=== PATIENT | male | born 1965 | race Caucasian/White ===

== ENCOUNTER 2024-10-06 11:30 | Inpatient (IN) | payer BC, SELFPAY ==
[2024-10-06] VITALS (39 sets, daily range): BP systolic 94–131; BP diastolic 65–88; PULSE 85–120; RESP 12–22; TEMP 36.4–37.4; O2SAT 90–97; BMI 32.5
--- NOTE | 2024-10-06 11:54 | ED.GENADULT ---
HPI - General Adult General Chief complaint: Abdominal Pain Stated complaint: abdominal pain Time Seen by Provider: 10/06/24 11:54 History of Present Illness HPI narrative: RLQ abdominal pain since this morning. My appendix is acting up again . Notes workup two months ago , but wasn't bad enough to remove. From [place], workup in [place], [place] 59-year-old man presenting to the emergency department with complaint of all qualities of pain in the right low abdomen. Beginning around 3 this morning about 9 hours ago had fairly rapid onset and of pain in the mid low abdomen. It is only worsened. Last ate last night and had a little ice water before arriving to the emergency department today. Is not experiencing any nausea. Has been passing gas at least earlier this morning. Believes that it is his appendix acting up again. Sounds like that was the assumption made on an urgent care visit 2 months ago. He says he was treated with anti-inflammatories. Has not had trouble until this morning as noted. No unusual stooling; no diarrhea or constipation. No hematochezia. No dysuria noted. No history of abdominal surgeries. No surgeries other than a cyst removal from behind his left ear. No anticoagulant. Related Data Home Medications ?Medication ?Instructions ?Recorded ?Confirmed No Known Home Medications 10/06/24 10/06/24 Allergies Allergy/AdvReac Type Severity Reaction Status Date / Time No Known Drug Allergies Allergy Verified 10/06/24 11:36 Review of Systems Status of ROS: Reports: 6 or more systems reviewed and unremarkable except as noted in History and below [facility] Social History Smoking Status: Never smoker Second hand tobacco smoke exposure: No How often do you have a drink containing alcohol: 2-4 times a month AUDIT-C Alcohol total score: 2 Non-prescribed substance use: denies use Exam Narrative: Exam Narrative: Clearly extremely uncomfortable. Eyes are closed but alerts to converse. Cranial nerves 2-12 intact. Breathing easily. Pulses tachycardic in a regular rhythm. Abdomen is soft. Diminished bowel sounds. Guards and tense on initial exam in the right lower abdomen. Is well-perfused peripherally. No edema. Const: Vital Signs, click to edit/add: Vital Signs - 24 hr 10/06/24 11:39 10/06/24 12:19 10/06/24 12:30 Temperature 99.3 F Pulse Rate 106 H 110 H Pulse Rate [Pulse Oximeter] 111 H Respiratory Rate 22 Blood Pressure Blood Pressure [Ri ght Upper Arm] 124/65 Pulse Oximetry 97 95 95 Oxygen Delivery Me thod Room Air 10/06/24 12:32 10/06/24 12:45 10/06/24 13:00 Temperature Pulse Rate 109 H 109 H 110 H Pulse Rate [Pulse Oximeter] Respiratory Rate Blood Pressure 117/72 Blood Pressure [Ri ght Upper Arm] Pulse Oximetry 92 93 91 Oxygen Delivery Me thod 10/06/24 13:01 10/06/24 13:15 10/06/24 13:33 Temperature Pulse Rate 110 H 109 H Pulse Rate [Pulse Oximeter] Respiratory Rate Blood Pressure 105/70 105/79 Blood Pressure [Ri ght Upper Arm] Pulse Oximetry 92 92 Oxygen Delivery Me thod 10/06/24 13:34 10/06/24 13:45 10/06/24 14:01 Temperature Pulse Rate 108 H 110 H Pulse Rate [Pulse Oximeter] Respiratory Rate Blood Pressure 100/74 Blood Pressure [Ri ght Upper Arm] Pulse Oximetry 95 92 Oxygen Delivery Me thod 10/06/24 14:26 10/06/24 14:27 10/06/24 14:30 Temperature Pulse Rate 109 H 120 H 110 H Pulse Rate [Pulse Oximeter] Respiratory Rate Blood Pressure 94/70 Blood Pressure [Ri ght Upper Arm] Pulse Oximetry 95 94 91 Oxygen Delivery Me thod 10/06/24 14:31 10/06/24 14:45 Temperature Pulse Rate 106 H 108 H Pulse Rate [Pulse Oximeter] Respiratory Rate Blood Pressure 98/73 Blood Pressure [Ri ght Upper Arm] Pulse Oximetry 92 93 Oxygen Delivery Me thod Documenting provider has reviewed patient's vital signs: yes Course Vital Signs Vital signs: Initial Vital Signs Temperature 99.3 F 10/06/24 11:39 Temperature Source Temporal Artery Scan 10/06/24 11:39 Pulse Rate 111 H 10/06/24 11:39 Respiratory Rate 22 10/06/24 11:39 Blood Pressure 124/65 10/06/24 11:39 Blood Pressure Mean 84 10/06/24 11:39 Blood Pressure Position Sitting 10/06/24 11:39 Pulse Oximetry 97 10/06/24 11:39 Oxygen Delivery Method Room Air 10/06/24 11:39 Vital Signs Temperature 99.3 F 10/06/24 11:39 Pulse Rate 111 H 10/06/24 11:39 Respiratory Rate 22 10/06/24 11:39 Blood Pressure 124/65 10/06/24 11:39 Pulse Oximetry 97 10/06/24 11:39 Oxygen Delivery Method Room Air 10/06/24 11:39 Temperature 99.3 F 10/06/24 11:39 Pulse Rate 108 H 10/06/24 14:45 Respiratory Rate 22 10/06/24 11:39 Blood Pressure 98/73 10/06/24 14:31 Pulse Oximetry 93 10/06/24 14:45 Oxygen Delivery Method Room Air 10/06/24 11:39 Medications Administered Medications: Discontinued Medications Generic Name Dose Route Start Last Admin Trade Name Freq PRN Reason Stop Dose Admin Sodium Chloride 1,000 mls @ 1,000 mls/hr 10/06/24 11:57 10/06/24 13:10 0.9 % Sodium Chloride 1000 Ml IV 10/06/24 12:56 Infused .Q1H ONE Infusion Morphine Sulfate 4 mg 10/06/24 11:57 10/06/24 12:11 Morphine 4 Mg/Ml Inj IVP 10/06/24 11:58 4 mg ONCE ONE Administration Morphine Sulfate 4 mg 10/06/24 14:22 10/06/24 14:26 Morphine 4 Mg/Ml Inj IVP 10/06/24 14:23 4 mg ONCE ONE Administration Medical Decision Making MDM Narrative Medical decision making narrative: Given abdominal exam here today think he will need some imaging particularly as no imaging was done on initial presentation 2 months ago. I also would have concerns of appendicitis here; possibly abscess. Will check for urinary tract infection. Does not seem to have pain in the area that I would associate with biliary disease. IV fluids and given initial dosing of morphine for pain. CT imaging with IV contrast by my independent read does show some fat stranding in the right lower abdomen. There is dilated structure there that I would suspect to be the appendix. Labs returned with normal white count. Mildly elevated CRP Radiology over-read below RIGHT LOWER ABDOMINAL PAIN. ?APPY Technique: CT abdomen/pelvis with IV contrast utilizing 115 mL Isovue 370 Comparison: None Findings: Lower thorax: Minimal dependent and basilar atelectasis. Abdomen/pelvis: The liver, gallbladder and biliary system, spleen, pancreas, adrenal glands, kidneys, ureters, bladder, seminal vesicles, prostate, and imaged external genitalia are unremarkable. Benign simple left renal cyst measuring 1.7 centimeters in greatest dimension. Small hiatal hernia. There is no evidence of bowel obstruction. The appendix is dilated to approximately 1.3 centimeters in diameter with [id number] periappendiceal fat stranding. No free air, free fluid, or abscess. No pathologically enlarged lymph nodes throughout the abdomen or pelvis. No abdominal aortic aneurysm. Mild calcific atherosclerosis of the aortoiliac system. Soft tissue/musculoskeletal: Diastasis recti with tiny fat containing umbilical hernia. No acute fracture or malalignment. Multilevel degenerative changes throughout the spine. No suspicious osseous lesions. Likely small, benign T10 vertebral body hemangioma. Impression: Acute, uncomplicated appendicitis; recommend consultation with surgery. Please note that all CT scans at this facility use dose modulation, iterative reconstruction, and/or weight-based dosing when appropriate to reduce radiation dose to as low as reasonably achievable. Dictated by Kike Jaffe MD @ 10/06/2024 2:19:03 PM Repeat dosing of morphine given. Had managed to fall sleep and woke in marked pain. Did contact our general surgeon on-call. Anticipating going to the OR yet this afternoon. Giving preop Zosyn. Lab Data Lab results reviewed: Yes I reviewed the patient's lab results Labs: Lab Results 10/06/24 10/06/24 Range/Units 11:50 12:58 WBC 6.93 (4.50-11.00) K/uL RBC 5.28 (4.30-5.90) m/uL Hgb 16.8 (13.5-17.5) gm/dL Hct 49.5 (37.0-53.0) % MCV 94 (80-100) fL MCH 32 (26-34) pg MCHC 34 (32-36) gm/dL RDW Coeff of Chanel 12.6 (11.5-15.5) % Plt Count 227 (140-440) K/uL Neut % (Auto) 94.8 H (42.0-72.0) % Lymph % (Auto) 4.2 L (20-44) % Davison % (Auto) 0.6 (0.0-11.0) % Eos % (Auto) 0.0 (0.0-7.0) % Baso % (Auto) 0.3 (0.0-3.0) % Neut # (Auto) 6.60 (1.7-7.0) K/uL Lymph # (Auto) 0.30 L (0.90-2.90) K/uL Davison # (Auto) 0.00 (0.00-0.90) K/UL Eos # (Auto) 0.00 (0.00-0.50) K/uL Baso # (Auto) 0.02 (0.00-0.30) K/uL Abs Immat Gran (auto) 0.01 (0.00-0.30) K/uL Imm/Tot Granulo (auto) 0.1 % Sodium 137 (135-149) mmol/L Potassium 4.3 (3.6-5.1) mmol/L Chloride 101 (96-114) mmol/L Carbon Dioxide 27 (20-32) mmol/L Anion Gap 9 (7-15) mEq/L BUN 15 (7-30) mg/dL Creatinine 1.1 (0.5-1.5) mg/dL Estimated Creat Clear 76.06 Estimated GFR 77 ml/min Glucose 122 H (60-115) mg/dL Calcium 9.2 (8.4-10.6) mg/dL C-Reactive Protein 1.6 H (0.5-1.0) mg/dL Lab Acknowledgement Test Added Discharge Plan Discharge Clinical Impression: Appendicitis, Abdominal pain Patient Disposition: XFER to OR Condition: Stable Follow Up/Referrals: Provider,Not a Local [Primary Care Provider, Family Practice]
--- NOTE | 2024-10-06 12:02 | CRLHL7_ITS ---
For Patients: As a result of the Century Cures Act, medical imaging exams and procedure reports are released immediately into your electronic medical record. You may view this report before your referring provider. If you have questions, please contact your health care provider. Indication: RIGHT LOWER ABDOMINAL PAIN. ?APPY Technique: CT abdomen/pelvis with IV contrast utilizing 115 mL Isovue 370 Comparison: None Findings: Lower thorax: Minimal dependent and basilar atelectasis. Abdomen/pelvis: The liver, gallbladder and biliary system, spleen, pancreas, adrenal glands, kidneys, ureters, bladder, seminal vesicles, prostate, and imaged external genitalia are unremarkable. Benign simple left renal cyst measuring 1.7 centimeters in greatest dimension. Small hiatal hernia. There is no evidence of bowel obstruction. The appendix is dilated to approximately 1.3 centimeters in diameter with [id number] periappendiceal fat stranding. No free air, free fluid, or abscess. No pathologically enlarged lymph nodes throughout the abdomen or pelvis. No abdominal aortic aneurysm. Mild calcific atherosclerosis of the aortoiliac system. Soft tissue/musculoskeletal: Diastasis recti with tiny fat containing umbilical hernia. No acute fracture or malalignment. Multilevel degenerative changes throughout the spine. No suspicious osseous lesions. Likely small, benign T10 vertebral body hemangioma. Impression: Acute, uncomplicated appendicitis; recommend consultation with surgery. Please note that all CT scans at this facility use dose modulation, iterative reconstruction, and/or weight-based dosing when appropriate to reduce radiation dose to as low as reasonably achievable. Dictated by Kike Jaffe MD @ 10/06/2024 2:19:03 PM (Electronically Signed)
[2024-10-06] MEDS: 0.9 % SODIUM CHLORIDE 1000 ml 1,000 ML IV (12:05)
[2024-10-06] MEDS: MORPHINE 4 MG/ML INJ IVP ×2 (12:11→14:26)
[2024-10-06 12:16] LABS: Basophils Absolute Auto 0.02 K/uL (0.00-0.30); Basophils Percent Auto 0.3 % (0.0-3.0); Hematocrit 49.5 % (37.0-53.0); Hemoglobin* 16.8 gm/dL (13.5-17.5); Immature Granulocytes Abs Auto 0.01 K/uL (0.00-0.30); Immature Granulocytes Pct Auto 0.1 %; Lymphocytes Percent Auto 4.2 % (20-44); Mean Corpuscular HGB Conc 34 gm/dL (32-36); Mean Corpuscular Hemoglobin 32 pg (26-34); Mean Corpuscular Volume 94 fL (80-100); Monocytes Percent Auto 0.6 % (0.0-11.0); Neutrophils Percent Auto 94.8 % (42.0-72.0); Platelet Count* 227 K/uL (140-440); RDW Coefficient of Variation % 12.6 % (11.5-15.5); Red Blood Count 5.28 m/uL (4.30-5.90); White Blood Count* 6.93 K/uL (4.50-11.00)
[2024-10-06 12:19] LABS: Slide Review Reflex No
[2024-10-06 12:39] LABS: Chloride* 101 mmol/L (96-114); Potassium* 4.3 mmol/L (3.6-5.1); Sodium* 137 mmol/L (135-149)
[2024-10-06 12:42] LABS: Blood Urea Nitrogen* 15 mg/dL (7-30); Creatinine* 1.1 mg/dL (0.5-1.5); Est. Creatinine Clearance* 76.06; Estimated Glomerular Filt Rate 77 ml/min
[2024-10-06 12:43] LABS: Anion Gap 9 mEq/L (7-15); Calcium* 9.2 mg/dL (8.4-10.6); Carbon Dioxide* 27 mmol/L (20-32); Glucose* 122 mg/dL (60-115)
[2024-10-06 12:46] LABS: C Reactive Protein* 1.6 mg/dL (0.5-1.0)
[2024-10-06] MEDS: PIPERACILLIN/TAZOBACTAM 4.5 GM in 0.9 % SODIUM CHLORIDE Mini-bag 100 ML IVPB (15:28)
[2024-10-06] MEDS: HYDROmorphone 0.5 mg/0.5 ml inj IVP (15:31)
[2024-10-06] MEDS: LACTATED RINGERS 1000 ML 1,000 ML 100 ML IV ×2 (15:35→19:02)
[2024-10-06 15:39] LABS: Albumin* 4.4 g/dL (3.3-5.0)
[2024-10-06 15:41] LABS: Bilirubin Direct* 0.5 mg/dL (0.0-0.5); Bilirubin Total* 1.4 mg/dL (0.1-1.5)
[2024-10-06 15:42] LABS: Alanine Aminotransferase* 42 U/L (4-50); Alkaline Phosphatase* 88 U/L (40-150); Aspartate Amino Transferase* 46 U/L (12-35); Total Protein* 7.4 g/dL (6.0-8.3)
--- NOTE | 2024-10-06 15:47 | P.GSHP_ITS ---
History of Present Illness History of Present Illness Date Seen: 10/06/24 Chief complaint: abdominal pain Narrative: Bc Hilliard is a 59 year old male who presents for severe right lower quadrant abdominal pain. The pain started around 3:00 a.m. today. It has been getting worse in intensity which brought him into the emergency department. He did have some nausea and vomiting this morning. He has felt fevers with rigors. He thinks he had a similar episode in June, although not this severe. He has never had abdominal surgery before. Patient is visiting from [place]. He was planning on going back home tomorrow Review of Systems Status of ROS: Reports: 10 or more systems reviewed and unremarkable except as noted in History and below [facility] Social History Smoking Status: Never smoker Second hand tobacco smoke exposure: No How often do you have a drink containing alcohol: 2-4 times a month AUDIT-C Alcohol total score: 2 Non-prescribed substance use: denies use Meds Home Medications and Allergies Home Medications ?Medication ?Instructions ?Recorded ?Confirmed ?Type No Known Home Medications 10/06/2409/14 History Allergies Allergy/AdvReac Type Severity Reaction Status Date / Time No Known Drug Allergies Allergy Verified 10/06/24 11:36 Exam Narrative: Exam Narrative: General: Alert and oriented, no acute distress Respiratory: Equal breath rise bilaterally, maintained on room CV: Well perfused Abdomen: Soft, tender to palpation to right lower quadrant with guarding and rebound Const: Vital Signs, click to edit/add: Vital Signs - 24 hr 10/06/24 11:39 10/06/24 12:19 10/06/24 12:30 Temperature 99.3 F Pulse Rate 106 H 110 H Pulse Rate [Pulse Oximeter] 111 H Respiratory Rate 22 Blood Pressure Blood Pressure [Ri ght Upper Arm] 124/65 Pulse Oximetry 97 95 95 Oxygen Delivery Me thod Room Air 10/06/24 12:32 10/06/24 12:45 10/06/24 13:00 Temperature Pulse Rate 109 H 109 H 110 H Pulse Rate [Pulse Oximeter] Respiratory Rate Blood Pressure 117/72 Blood Pressure [Ri ght Upper Arm] Pulse Oximetry 92 93 91 Oxygen Delivery Me thod 10/06/24 13:01 10/06/24 13:15 10/06/24 13:33 Temperature Pulse Rate 110 H 109 H Pulse Rate [Pulse Oximeter] Respiratory Rate Blood Pressure 105/70 105/79 Blood Pressure [Ri ght Upper Arm] Pulse Oximetry 92 92 Oxygen Delivery Me thod 10/06/24 13:34 10/06/24 13:45 10/06/24 14:01 Temperature Pulse Rate 108 H 110 H Pulse Rate [Pulse Oximeter] Respiratory Rate Blood Pressure 100/74 Blood Pressure [Ri ght Upper Arm] Pulse Oximetry 95 92 Oxygen Delivery Me thod 10/06/24 14:26 10/06/24 14:27 10/06/24 14:30 Temperature Pulse Rate 109 H 120 H 110 H Pulse Rate [Pulse Oximeter] Respiratory Rate Blood Pressure 94/70 Blood Pressure [Ri ght Upper Arm] Pulse Oximetry 95 94 91 Oxygen Delivery Me thod 10/06/24 14:31 10/06/24 14:45 Temperature Pulse Rate 106 H 108 H Pulse Rate [Pulse Oximeter] Respiratory Rate Blood Pressure 98/73 Blood Pressure [Ri ght Upper Arm] Pulse Oximetry 92 93 Oxygen Delivery Me thod Results Results Labs: No leukocytosis Abdomen CT scan report/results: report reviewed and image reviewed Progress Note:A&P Assessment and plan (1) Appendicitis: Status: Acute Assessment and Plan: Patient is a 59-year-old male who presents with clinical symptoms concerning for an early appendicitis. Labs were obtained with no leukocytosis, but the presence of a left shift. CRP is elevated at 1.6. A CT scan was obtained which shows dilation of the appendix, small amount of surrounding fluid and fat stranding consistent with appendicitis. I discussed the treatment options with the patient including non-surgical and surgical options. I recommended laparoscopic appendectomy. The risks of surgery were reviewed with the patient including the risks of bleeding, post-operative wound or intra-abdominal infection, injury to abdominal structures and possible conversion to an open operation. We also discussed anesthetic complications including TX, stroke, respiratory failure and blood clots. The patient voiced an understanding of our conversation, had the opportunity to ask questions, agreed to accept the risks of surgery and asked that we proceed with surgery. Plan OR for laparoscopic appendectomy
[2024-10-06] MEDS: BUPIVACAINE 0.25% 30 ML INJECTION (17:04)
--- NOTE | 2024-10-06 17:08 | PM.GSPRC ---
Operative Note Date of procedure: 10/06/24 Pre-op diagnosis: Acute appendicitis Post-op diagnosis: Same, perforated Type of Procedure: Laparoscopic appendectomy Indications: Patient is a 59-year-old male who presented to the emergency department with clinical workup and symptoms consistent with acute appendicitis. A CT scan confirmed the diagnosis. Recommendations were to proceed with surgery. Risks and benefits of operative intervention were discussed at length with the patient. Risks included but was not limited to: Bleeding, infection, risk of damage to surrounding structures, possible need for additional procedures, possible need to convert to an open operation and postoperative complications such as pneumonia, pulmonary emboli or [place]. All questions and concerns were addressed with the patient agreeing to proceed. Procedure Description: After discussing the risks and benefits of the procedure, the patient signed informed consent.? The operative site was marked and the patient was brought to the operating room and placed on the operating table in supine position.? Care was taken to pad the patient's pressure points.?? The patient was then intubated by anesthesia.?? The operative site was then prepped and draped in the usual sterile fashion.? A time-out was then performed. Entrance to the abdomen was obtained via a 5 mm optical trocar in the left upper quadrant. The abdomen was insufflated and briefly surveyed for any signs of injury. There were none. A 12 mm port was placed at the umbilicus as well as a 5 mm port in the left lower quadrant under direct vision. The patient was then placed in Trendelenburg position with the right side up. Fibrinous exudate and evidence of purulence in the right lower quadrant was identified. The small bowel was inflamed and gently moved out of the way. The cecum was identified, as well as the terminal ileum. The base of the appendix was seen the body of the appendix densely adherent to the lateral and posterior aspect of the cecum. On the body of the appendix was an area of necrosis with a small perforation identified. Omentum and epiploic fat was adherent within the right lower quadrant and inflamed. The body of the appendix was dissected away from the lateral abdominal wall and surrounding inflammatory attachments bluntly and with cautery. The base of the appendix was identified and a mesenteric window was created between the base of the appendix and the mesoappendix. A 30 mm Endo-EFRAÍN purple load stapler was then used to transect the appendix at its base. This staple line was inspected and appeared intact with adequate hemostasis. A 45 mm vascular load stapler was then used to take the mesoappendix. An additional 30 mm staple load was used to complete the transection. The staple lines were inspected for bleeding. There was none. The appendix was then removed from the abdomen using an Endo-Catch bag. The specimen was sent to pathology. Local irrigation was used in the right lower quadrant. All fluid within the pelvis was suctioned. The ports were removed under direct visualization. The 12 mm port site fascia was closed with 0 Vicryl. The skin was then closed with absorbable subcuticular suture. Sterile dressings were then applied. Instrument sponge and needle counts were correct at the end of the case. The patient was then woken and transported to the PACU in stable condition. Findings: Perforated appendicitis [facility] Surgeon: Lea Santiago MD Estimated blood loss (mL): 5 Specimen: Appendix Condition: stable Disposition: PACU
--- NOTE | 2024-10-06 17:18 | P.ANES_ITS ---
Anesthesia Charges Start Date/Time Anesthesia Start Date: 10/06/24 Anesthesia Start Time: 16:00 Stop Date/Time Anesthesia Stop Date: 10/06/24 Anesthesia Stop Time: 17:18 Summary Emergency: [employer] CONSULTANT Coding CPT Codes CPT Codes: ANESTH SURG LOWER ABDOMEN - 28260 ([id number]) P2 - PATIENT W/MILD SYST DISEASE, QZ - [employer] CONSULTANT SVC W/O KNOCK UP ASSEMBLER BY Additional Codes: Summary - Emergency: [employer] CONSULTANT ([id number])
--- NOTE | 2024-10-06 17:18 | W.ANESCHARGE ---
Anesthesia Charges Start Date/Time Anesthesia Start Date: 10/06/24 Anesthesia Start Time: 16:00 Stop Date/Time Anesthesia Stop Date: 10/06/24 Anesthesia Stop Time: 17:18 Summary Emergency: MAINTENA[employer]CE [employer]OP MANAGER Coding CPT Codes CPT Codes: ANESTH SURG LOWER ABDOMEN - 02120 ([id number]) P2 - PATIENT W/MILD SYST DISEASE, QZ - MAINTENANCE SHOP MANAGER SVC W/O TSA SCREENER BY Additional Codes: Summary - Emergency: MAINTENANCE SHOP MANAGER ([id number])
[2024-10-06] MEDS: PIPERACILLIN/TAZOBACTAM 3.375 GM in 0.9 % SODIUM CHLORIDE Mini-bag 100 ML IVPB (21:37)
[2024-10-06] MEDS: 0.9 % SODIUM CHLORIDE 250 ml IV (21:46)
[2024-10-07] VITALS (14 sets, daily range): BP systolic 108–129; BP diastolic 69–84; PULSE 86–105; RESP 14–16; TEMP 36.5–37.8; O2SAT 90–97
[2024-10-07] MEDS: PIPERACILLIN/TAZOBACTAM 3.375 GM in 0.9 % SODIUM CHLORIDE Mini-bag 100 ML IVPB ×4 (02:32→21:08)
--- NOTE | 2024-10-07 06:40 | PC.NURSE ---
Shift note: Patient is doing well ambulating with SBA. Ambulated 1x in the hallway. Denied dizziness, SOB, N/V. Pain has been minimal, rated at 1 or 2. No PRN pain medication requested. A/O, pleasant, cooperate with treatment and care. vitally stable. LAP sites appeared clean and dry. Patient adequate sleep. SCD applied, IS used Q1h by patient. Ice pack applied to the abdomen. Clear liquid diet. Hypoactive bowel sound in all quadrants. Patient reported passing gas this morning.
[2024-10-07 07:02] LABS: Basophils Absolute Auto 0.01 K/uL (0.00-0.30); Basophils Percent Auto 0.1 % (0.0-3.0); Hematocrit 43.1 % (37.0-53.0); Hemoglobin* 14.3 gm/dL (13.5-17.5); Immature Granulocytes Abs Auto 0.02 K/uL (0.00-0.30); Immature Granulocytes Pct Auto 0.2 %; Lymphocytes Percent Auto 4.4 % (20-44); Mean Corpuscular HGB Conc 33 gm/dL (32-36); Mean Corpuscular Hemoglobin 32 pg (26-34); Mean Corpuscular Volume 96 fL (80-100); Monocytes Percent Auto 8.2 % (0.0-11.0); Neutrophils Percent Auto 87.1 % (42.0-72.0); Platelet Count* 164 K/uL (140-440); RDW Coefficient of Variation % 12.8 % (11.5-15.5); Red Blood Count 4.49 m/uL (4.30-5.90); White Blood Count* 10.08 K/uL (4.50-11.00)
[2024-10-07 07:11] LABS: Slide Review Reflex No
[2024-10-07] MEDS: LACTATED RINGERS 1000 ML 1,000 ML 100 ML IV (07:25)
[2024-10-07 07:28] LABS: Chloride* 104 mmol/L (96-114)
[2024-10-07 07:29] LABS: Potassium* 4.2 mmol/L (3.6-5.1); Sodium* 136 mmol/L (135-149)
[2024-10-07 07:32] LABS: Anion Gap 6 mEq/L (7-15); Blood Urea Nitrogen* 11 mg/dL (7-30); Calcium* 8.2 mg/dL (8.4-10.6); Carbon Dioxide* 26 mmol/L (20-32); Est. Creatinine Clearance* 83.67; Estimated Glomerular Filt Rate 86 ml/min; Glucose* 135 mg/dL (60-115)
--- NOTE | 2024-10-07 10:22 | P.GSPN_ITS ---
Subjective Subjective Date Seen: 10/07/24 Interval history: Patient is doing well this morning. His abdomen ?feels tight?, but the pain has significantly improved compared to when he came in with. He has been passing gas. He had some exam this morning and tolerated that well. No nausea or vomiting. No fevers overnight. Has not yet gotten up and walking the halls. Exam Narrative: Exam Narrative: Abdomen: Soft, some mild distention, appropriately tender over incision sites. Some tenderness in the right lower quadrant with deep palpation, no guarding or rebound. Const: Vital Signs, click to edit/add: Vital Signs - 24 hr 10/06/24 11:39 10/06/24 12:19 10/06/24 12:30 Temperature 99.3 F Pulse Rate 106 H 110 H Pulse Rate [Pulse Oximeter] 111 H Pulse Rate [Right Pulse Oximeter] Respiratory Rate 22 Blood Pressure Blood Pressure [Ri ght Arm] Blood Pressure [Ri ght Upper Arm] 124/65 Pulse Oximetry 97 95 95 Oxygen Delivery Me thod Room Air Oxygen Flow Rate 10/06/24 12:32 10/06/24 12:45 10/06/24 13:00 Temperature Pulse Rate 109 H 109 H 110 H Pulse Rate [Pulse Oximeter] Pulse Rate [Right Pulse Oximeter] Respiratory Rate Blood Pressure 117/72 Blood Pressure [Ri ght Arm] Blood Pressure [Ri ght Upper Arm] Pulse Oximetry 92 93 91 Oxygen Delivery Me thod Oxygen Flow Rate 10/06/24 13:01 10/06/24 13:15 10/06/24 13:33 Temperature Pulse Rate 110 H 109 H Pulse Rate [Pulse Oximeter] Pulse Rate [Right Pulse Oximeter] Respiratory Rate Blood Pressure 105/70 105/79 Blood Pressure [Ri ght Arm] Blood Pressure [Ri ght Upper Arm] Pulse Oximetry 92 92 Oxygen Delivery Me thod Oxygen Flow Rate 10/06/24 13:34 10/06/24 13:45 10/06/24 14:01 Temperature Pulse Rate 108 H 110 H Pulse Rate [Pulse Oximeter] Pulse Rate [Right Pulse Oximeter] Respiratory Rate Blood Pressure 100/74 Blood Pressure [Ri ght Arm] Blood Pressure [Ri ght Upper Arm] Pulse Oximetry 95 92 Oxygen Delivery Me thod Oxygen Flow Rate 10/06/24 14:26 10/06/24 14:27 10/06/24 14:30 Temperature Pulse Rate 109 H 120 H 110 H Pulse Rate [Pulse Oximeter] Pulse Rate [Right Pulse Oximeter] Respiratory Rate Blood Pressure 94/70 Blood Pressure [Ri ght Arm] Blood Pressure [Ri ght Upper Arm] Pulse Oximetry 95 94 91 Oxygen Delivery Me thod Oxygen Flow Rate 10/06/24 14:31 10/06/24 14:45 10/06/24 15:00 Temperature Pulse Rate 106 H 108 H 105 H Pulse Rate [Pulse Oximeter] Pulse Rate [Right Pulse Oximeter] Respiratory Rate Blood Pressure 98/73 Blood Pressure [Ri ght Arm] Blood Pressure [Ri ght Upper Arm] Pulse Oximetry 92 93 95 Oxygen Delivery Me thod Oxygen Flow Rate 10/06/24 15:01 10/06/24 15:03 10/06/24 15:15 Temperature Pulse Rate 107 H 107 H 104 H Pulse Rate [Pulse Oximeter] Pulse Rate [Right Pulse Oximeter] Respiratory Rate Blood Pressure 102/76 Blood Pressure [Ri ght Arm] Blood Pressure [Ri ght Upper Arm] Pulse Oximetry 93 94 93 Oxygen Delivery Me thod Oxygen Flow Rate 10/06/24 15:30 10/06/24 15:31 10/06/24 15:45 Temperature Pulse Rate 104 H 104 H 111 H Pulse Rate [Pulse Oximeter] Pulse Rate [Right Pulse Oximeter] Respiratory Rate Blood Pressure 94/72 Blood Pressure [Ri ght Arm] Blood Pressure [Ri ght Upper Arm] Pulse Oximetry 95 96 96 Oxygen Delivery Me thod Oxygen Flow Rate 10/06/24 17:15 10/06/24 17:20 10/06/24 17:25 Temperature 97.6 F Pulse Rate 109 H 104 H 101 H Pulse Rate [Pulse Oximeter] Pulse Rate [Right Pulse Oximeter] Respiratory Rate 18 12 19 Blood Pressure 131/83 124/77 112/76 Blood Pressure [Ri ght Arm] Blood Pressure [Ri ght Upper Arm] Pulse Oximetry 92 95 96 Oxygen Delivery Me thod Nasal Cannula Room Air Oxygen Flow Rate 5 2 10/06/24 17:30 10/06/24 17:38 10/06/24 17:45 Temperature 98.6 F 98.7 F 98.7 F Pulse Rate 99 106 H 103 H Pulse Rate [Pulse Oximeter] Pulse Rate [Right Pulse Oximeter] Respiratory Rate 15 16 16 Blood Pressure 104/76 114/79 106/67 Blood Pressure [Ri ght Arm] Blood Pressure [Ri ght Upper Arm] Pulse Oximetry 97 93 93 Oxygen Delivery Me thod Room Air Room Air Oxygen Flow Rate 10/06/24 18:00 10/06/24 18:15 10/06/24 18:30 Temperature 98.8 F 98.4 F 98.5 F Pulse Rate 100 98 97 Pulse Rate [Pulse Oximeter] Pulse Rate [Right Pulse Oximeter] Respiratory Rate 16 14 16 Blood Pressure 99/77 100/73 104/73 Blood Pressure [Ri ght Arm] Blood Pressure [Ri ght Upper Arm] Pulse Oximetry 94 90 93 Oxygen Delivery Me thod Room Air Room Air Room Air Oxygen Flow Rate 10/06/24 19:00 10/06/24 20:02 10/06/24 20:03 Temperature 98.8 F 98.5 F 98.8 F Pulse Rate 85 89 88 Pulse Rate [Pulse Oximeter] Pulse Rate [Right Pulse Oximeter] Respiratory Rate 16 16 16 Blood Pressure 102/88 106/75 110/77 Blood Pressure [Ri ght Arm] Blood Pressure [Ri ght Upper Arm] Pulse Oximetry 95 95 94 Oxygen Delivery Me thod Room Air Room Air Room Air Oxygen Flow Rate 10/06/24 21:00 10/06/24 22:00 10/06/24 23:00 Temperature 98 F 98.8 F Pulse Rate 89 88 Pulse Rate [Pulse Oximeter] Pulse Rate [Right Pulse Oximeter] Respiratory Rate 16 16 16 Blood Pressure 114/79 111/74 Blood Pressure [Ri ght Arm] Blood Pressure [Ri ght Upper Arm] Pulse Oximetry 94 95 93 Oxygen Delivery Me thod Room Air Room Air Room Air Oxygen Flow Rate 10/06/24 23:00 10/06/24 23:00 10/07/24 00:00 Temperature 99.2 F 99.2 F 98.9 F Pulse Rate 88 88 Pulse Rate [Pulse Oximeter] Pulse Rate [Right Pulse Oximeter] 86 Respiratory Rate 16 16 16 Blood Pressure 111/77 109/72 Blood Pressure [Ri ght Arm] 111/77 Blood Pressure [Ri ght Upper Arm] Pulse Oximetry 93 93 95 Oxygen Delivery Me thod Room Air Room Air Room Air Oxygen Flow Rate 10/07/24 02:36 10/07/24 08:30 Temperature 98.9 F 99.1 F Pulse Rate Pulse Rate [Pulse Oximeter] Pulse Rate [Right Pulse Oximeter] 87 86 Respiratory Rate 16 16 Blood Pressure Blood Pressure [Ri ght Arm] 118/84 114/69 Blood Pressure [Ri ght Upper Arm] Pulse Oximetry 94 97 Oxygen Delivery Me thod Room Air Room Air Oxygen Flow Rate Labs/Imaging Labs Labs: WBC (10) Progress Note:A&P Assessment and plan (1) Appendicitis: Status: Acute Assessment and Plan: Patient is postop day 1 laparoscopic appendectomy for perforated appendicitis. Recommend continuing IV antibiotics today. Will transition to oral antibiotics before discharge to complete a 10 day course. Patient is passing gas and feeling hungry this morning, okay to advance diet as tolerated. Encouraged a mbulation in the hallways. Anticipate discharge likely tomorrow.
[2024-10-07] MEDS: ACETAMINOPHEN 325 MG TABLET 650 MG PO ×2 (12:25→18:35)
--- NOTE | 2024-10-07 14:40 | PC.NURSE ---
Pt doing well today. VSS. Reports mild discomfort to surgical sites. Surgical sites remain clean, dry, and intact. Pt is ambulating in room independently and tolerating well. No nausea or vomiting on this shift. Tolerating regular diet well. Receiving IV abx and tolerating. is at bedside most of today. Resting well at this time.
[2024-10-07] MEDS: SODIUM CHLORIDE 0.9 % (FLUSH) 10 ML SYRINGE IVF (21:07)
[2024-10-07] MEDS: HYDROCODONE-ACETAMIN 5-325 MG 1 TAB PO (21:30)
--- NOTE | 2024-10-07 23:03 | PC.NURSE ---
Patient tolerating regular diet. Patient utilizing prn medications for pain and fever. Patient did not ambulate in halls but went to bathroom independently in room.
[2024-10-08] VITALS (14 sets, daily range): BP systolic 120–178; BP diastolic 79–105; PULSE 94–136; RESP 16–26; TEMP 37–38.7; O2SAT 88–95
[2024-10-08] MEDS: 0.9 % SODIUM CHLORIDE 250 ml IV (03:08)
[2024-10-08] MEDS: PIPERACILLIN/TAZOBACTAM 3.375 GM in 0.9 % SODIUM CHLORIDE Mini-bag 100 ML IVPB ×4 (03:09→21:29)
[2024-10-08] MEDS: ACETAMINOPHEN 325 MG TABLET 650 MG PO ×3 (03:22→23:22)
--- NOTE | 2024-10-08 06:19 | PC.NURSE ---
Pt is alert and oriented x3. Afebrile. Pt reports ?cramping but no pain?. Pt has had some low-grade temps overnight, managed with PRN Tylenol. Pt's lap sites a CDI. Pt is up Ind in room, voiding and tolerating a regular diet. Pt is passing gas and had moderate loose BM.
[2024-10-08 08:51] LABS: Basophils Absolute Auto 0.03 K/uL (0.00-0.30); Basophils Percent Auto 0.3 % (0.0-3.0); Eosinophils Absolute Auto 0.03 K/uL (0.00-0.50); Eosinophils Percent Auto 0.3 % (0.0-7.0); Hematocrit 44.4 % (37.0-53.0); Hemoglobin* 14.6 gm/dL (13.5-17.5); Immature Granulocytes Abs Auto 0.01 K/uL (0.00-0.30); Immature Granulocytes Pct Auto 0.1 %; Lymphocytes Percent Auto 6.1 % (20-44); Mean Corpuscular HGB Conc 33 gm/dL (32-36); Mean Corpuscular Hemoglobin 32 pg (26-34); Mean Corpuscular Volume 96 fL (80-100); Neutrophils Percent Auto 85.2 % (42.0-72.0); Platelet Count* 155 K/uL (140-440); RDW Coefficient of Variation % 12.9 % (11.5-15.5); Red Blood Count 4.61 m/uL (4.30-5.90); White Blood Count* 9.75 K/uL (4.50-11.00)
[2024-10-08 08:53] LABS: Slide Review Reflex No
--- NOTE | 2024-10-08 10:18 | PM.GSPN ---
Subjective Subjective Date Seen: 10/08/24 Interval history: Patient is doing okay today. He denies any abdominal pain but does feel ?like he is starting to have a fever?. He was able to sleep last night. He has been tolerating a regular diet and had 2 bowel movements yesterday. Exam Narrative: Exam Narrative: General: Alert and oriented, no acute distress Abdomen: Incisions clean/dry/intact with Steri-Strips in place. Some tenderness on the right side, no guarding or rebound. Const: Vital Signs, click to edit/add: Vital Signs - 24 hr 10/07/24 12:00 10/07/24 12:25 10/07/24 14:33 Temperature 99.2 F 99.2 F 97.7 F Pulse Rate [Right Pulse Oximeter] 88 Respiratory Rate 16 Blood Pressure [Ri ght Arm] 115/71 Pulse Oximetry 97 Oxygen Delivery Me thod Room Air 10/07/24 14:37 10/07/24 15:00 10/07/24 15:00 Temperature 97.7 F 99.0 F Pulse Rate [Right Pulse Oximeter] 91 91 Respiratory Rate 14 14 Blood Pressure [Ri ght Arm] 108/76 Pulse Oximetry 97 Oxygen Delivery Me thod Room Air 10/07/24 15:00 10/07/24 18:25 10/07/24 18:35 Temperature 99.2 F 99.2 F Pulse Rate [Right Pulse Oximeter] 93 Respiratory Rate 14 15 Blood Pressure [Ri ght Arm] 122/80 Pulse Oximetry 97 95 Oxygen Delivery Me thod Room Air Room Air 10/07/24 21:13 10/07/24 21:30 10/07/24 22:59 Temperature 100 F H 100.0 F H Pulse Rate [Right Pulse Oximeter] Respiratory Rate 16 Blood Pressure [Ri ght Arm] Pulse Oximetry 94 Oxygen Delivery Me thod Room Air 10/07/24 22:59 10/08/24 03:10 10/08/24 03:22 Temperature 99.1 F 99.7 F H 99.7 F H Pulse Rate [Right Pulse Oximeter] 105 H 103 H Respiratory Rate 16 18 Blood Pressure [Ri ght Arm] 129/84 126/79 Pulse Oximetry 90 90 Oxygen Delivery Me thod Room Air Room Air 10/08/24 06:25 10/08/24 07:00 10/08/24 07:00 Temperature 98.7 F 100.5 F H Pulse Rate [Right Pulse Oximeter] 100 Respiratory Rate 18 18 Blood Pressure [Ri ght Arm] 122/82 Pulse Oximetry 95 88 Oxygen Delivery Me thod Room Air Room Air Labs/Imaging Labs Labs: No leukocytosis, presence of a left shift. Progress Note:A&P Assessment and plan (1) Appendicitis: Status: Acute Assessment and Plan: Patient is postop day 2 laparoscopic appendectomy for perforated appendicitis. Patient with an up trending fever curve (100.5 this morning). CRP add on lab for today and yesterday to trend. He has never had a white count, but he continues to have a left shift present in the differential. Recommend continuing IV antibiotics today. Continue with a regular diet. Encourage ambulation.
[2024-10-08 11:05] LABS: C Reactive Protein* 23.9 mg/dL (0.5-1.0)
[2024-10-08 11:05] LABS: C Reactive Protein* 25.5 mg/dL (0.5-1.0)
[2024-10-08] MEDS: KETOROLAC 15 MG/ML inj IVP (13:16)
[2024-10-08] MEDS: HYDROCODONE-ACETAMIN 5-325 MG 1 TAB PO ×2 (13:17→22:38)
--- NOTE | 2024-10-08 18:33 | CRLHL7_ITS ---
For Patients: As a result of the Cures Act, medical imaging exams and procedure reports are released immediately into your electronic medical record. You may view this report before your referring provider. If you have questions, please contact your health care provider. INDICATION: Low oxygen sats. TECHNIQUE: CT chest PE was acquired with 95 cc Isovue 370 IV contrast. COMPARISON: CT abdomen and pelvis 10/06/2024. FINDINGS: Heart and vasculature: Contrast opacification of the pulmonary arterial tree is adequate. No sign of pulmonary embolism. Heart size is normal. Thoracic aorta and pulmonary artery are normal in caliber. Lungs and pleura: Bilateral lower lobe atelectasis. Tiny bilateral pleural effusions. No pneumothorax. Lymph nodes/mediastinum: No mediastinal, hilar, or axillary adenopathy. Chest wall: No masses. Upper abdomen: No acute or significant findings. Bones: Unremarkable for age. IMPRESSION: 1. No pulmonary embolism. 2. Bilateral lower lobe atelectasis with tiny bilateral pleural effusions. Please note that all CT scans at this facility use dose modulation, iterative reconstruction, and/or weight-based dosing when appropriate to reduce radiation dose to as low as reasonably achievable. Dictated by Panchito Muniz MD @ 10/08/2024 8:35:12 PM (Electronically Signed)
[2024-10-08 19:09] LABS: Lactate* 2.1 mmol/L (0.5-1.9)
[2024-10-08 19:10] LABS: Basophils Absolute Auto 0.02 K/uL (0.00-0.30); Basophils Percent Auto 0.2 % (0.0-3.0); Eosinophils Absolute Auto 0.03 K/uL (0.00-0.50); Eosinophils Percent Auto 0.3 % (0.0-7.0); Hematocrit 42.5 % (37.0-53.0); Hemoglobin* 14.4 gm/dL (13.5-17.5); Immature Granulocytes Abs Auto 0.01 K/uL (0.00-0.30); Immature Granulocytes Pct Auto 0.1 %; Lymphocytes Percent Auto 5.9 % (20-44); Mean Corpuscular HGB Conc 34 gm/dL (32-36); Mean Corpuscular Hemoglobin 32 pg (26-34); Mean Corpuscular Volume 94 fL (80-100); Neutrophils Percent Auto 86.5 % (42.0-72.0); Platelet Count* 150 K/uL (140-440); RDW Coefficient of Variation % 12.5 % (11.5-15.5); Red Blood Count 4.53 m/uL (4.30-5.90)
[2024-10-08 19:14] LABS: Slide Review Reflex No
[2024-10-08 19:23] LABS: Chloride* 104 mmol/L (96-114); Sodium* 133 mmol/L (135-149)
[2024-10-08 19:26] LABS: Blood Urea Nitrogen* 19 mg/dL (7-30); Creatinine* 1.2 mg/dL (0.5-1.5); Est. Creatinine Clearance* 69.72; Estimated Glomerular Filt Rate 69 ml/min
[2024-10-08 19:27] LABS: Anion Gap 8 mEq/L (7-15); Calcium* 8.5 mg/dL (8.4-10.6); Carbon Dioxide* 21 mmol/L (20-32); Glucose* 121 mg/dL (60-115)
[2024-10-08] MEDS: 0.9 % SODIUM CHLORIDE 1000 ml 1,000 ML IV (19:50)
--- NOTE | 2024-10-08 20:18 | PC.NURSE ---
Shift Note -19: Pt friendly and cooperative. Quite sleepy this morning and declined breakfast tray. Mildly elevated temps noted at that time. Pt's family came to visit this afternoon and telegraphic typewriter installer encouraged pt to get out of bed and ambulate to visit with them in the hospital fireplace lounge. Pt did ambulate there and back and exhibited a moist unproductive cough for the majority of the walk. Pt encouraged to use IS and TCDB. Requisition Approver discussed post-op pneumonia risks with pt and explained pain medicine may be helpful for him to fully participate in IS and TCDB recommendations. Pt rated his pain low, but agreed to 1 tab [place] and toradol. Pt verbalized feeling much better and was able to enjoy his family visit. Approximately 1630, pt developed a fever of 101.9 and exhibited aggressive rigors. Pt stated he was freezing. HR tachy, SpO2 88% on RA. Pt placed on 1L/O2 via NC to maintain sats at 90% or greater. PRN Tylenol given and Dr. Santiago updated. Labs and EKG ordered as well as PE study. Pt appears more comfortable at this time, VS have improved.
[2024-10-09] VITALS (9 sets, daily range): BP systolic 125–148; BP diastolic 82–100; PULSE 85–97; RESP 16–27; TEMP 36.9–37.9; O2SAT 92–97
[2024-10-09] MEDS: PIPERACILLIN/TAZOBACTAM 3.375 GM in 0.9 % SODIUM CHLORIDE Mini-bag 100 ML IVPB ×4 (02:34→22:00)
[2024-10-09] MEDS: ACETAMINOPHEN 325 MG TABLET 650 MG PO ×3 (05:31→22:01)
--- NOTE | 2024-10-09 05:54 | PC.NURSE ---
End of shift [id number]: Pt AxOx4, pleasant, and cooperative with cares. Lap sites remain CDI. NS running @ 75 ml/hr. Indep in room, ambulating well with IV pole. PRN Tylenol q2h to stay ahead of low grade fevers. Denies pain. Able to rest for majority of the shift. Pt appears resting watching television, call light in reach.
[2024-10-09 07:20] LABS: C Reactive Protein* 33.1 mg/dL (0.5-1.0)
[2024-10-09 07:22] LABS: Basophils Absolute Auto 0.03 K/uL (0.00-0.30); Basophils Percent Auto 0.3 % (0.0-3.0); Eosinophils Absolute Auto 0.09 K/uL (0.00-0.50); Eosinophils Percent Auto 0.9 % (0.0-7.0); Hematocrit 43.3 % (37.0-53.0); Hemoglobin* 14.4 gm/dL (13.5-17.5); Immature Granulocytes Abs Auto 0.07 K/uL (0.00-0.30); Immature Granulocytes Pct Auto 0.7 %; Lymphocytes Percent Auto 6.8 % (20-44); Mean Corpuscular HGB Conc 33 gm/dL (32-36); Mean Corpuscular Hemoglobin 31 pg (26-34); Mean Corpuscular Volume 95 fL (80-100); Monocytes Percent Auto 9.3 % (0.0-11.0); Platelet Count* 158 K/uL (140-440); RDW Coefficient of Variation % 12.7 % (11.5-15.5); Red Blood Count 4.58 m/uL (4.30-5.90); White Blood Count* 9.95 K/uL (4.50-11.00)
[2024-10-09 07:23] LABS: Slide Review Reflex No
--- NOTE | 2024-10-09 08:45 | PM.GSPN ---
Subjective Subjective Date Seen: 10/09/24 Interval history: Patient reports feeling great this morning. He denies any abdominal pain. He is tolerating a regular diet, drinking water. Continues to pass gas and have bowel movements. Yesterday afternoon he had ?the shaking chills ?. He also had a low-grade temperature overnight. No other concerns. Exam Narrative: Exam Narrative: General: Alert and oriented, no acute distress. Nontoxic Abdomen: Soft, some tenderness to palpation on right side, no guarding or rebound. Incisions with Steri-Strips over place clean/dry/intact Const: Vital Signs, click to edit/add: Vital Signs - 24 hr 10/08/24 11:00 10/08/24 13:16 10/08/24 15:00 Temperature 100.9 F H 100.3 F H Pulse Rate [Right Pulse Oximeter] 94 Respiratory Rate 18 18 Blood Pressure [Ri ght Arm] 138/88 Pulse Oximetry 94 93 Oxygen Delivery Me thod Room Air Room Air Oxygen Flow Rate 10/08/24 15:00 10/08/24 15:00 10/08/24 17:31 Temperature 98.6 F 101.6 F H Pulse Rate [Right Pulse Oximeter] 100 100 Respiratory Rate 18 18 Blood Pressure [Ri ght Arm] 120/81 Pulse Oximetry 93 Oxygen Delivery Me thod Room Air Oxygen Flow Rate 10/08/24 18:00 10/08/24 18:35 10/08/24 19:45 Temperature 101.6 F H 100.4 F H 99.7 F H Pulse Rate [Right Pulse Oximeter] 136 H 114 H 98 Respiratory Rate 18 26 H 18 Blood Pressure [Ri ght Arm] 178/105 H 134/83 148/91 H Pulse Oximetry 90 93 92 Oxygen Delivery Me thod Nasal Cannula Nasal Cannula Room Air Oxygen Flow Rate 1 1 10/08/24 20:03 10/08/24 22:30 10/08/24 22:30 Temperature 99.6 F Pulse Rate [Right Pulse Oximeter] Respiratory Rate 16 16 Blood Pressure [Ri ght Arm] Pulse Oximetry 92 Oxygen Delivery Me thod Room Air Oxygen Flow Rate 10/08/24 22:30 10/08/24 22:38 10/09/24 02:35 Temperature 100.3 F H 100.3 F H 98.6 F Pulse Rate [Right Pulse Oximeter] 100 Respiratory Rate 16 Blood Pressure [Ri ght Arm] 148/87 H Pulse Oximetry 92 Oxygen Delivery Me thod Room Air Oxygen Flow Rate 10/09/24 02:35 10/09/24 05:31 10/09/24 07:03 Temperature 98.6 F 99.5 F 99.1 F Pulse Rate [Right Pulse Oximeter] 85 Respiratory Rate 16 Blood Pressure [Ri ght Arm] 126/89 Pulse Oximetry 93 Oxygen Delivery Me thod Room Air Oxygen Flow Rate Labs/Imaging Labs Labs: No leukocytosis. CRP is trending up (1.6--23.9--25.5--33.1) Imaging Imaging: CT chest angio: No evidence of PE, bilateral lower lobe atelectasis with tiny bilateral pleural effusions Progress Note:A&P Assessment and plan (1) Appendicitis: Status: Acute Assessment and Plan: Patient is postop day 3 laparoscopic appendectomy for perforated appendicitis. Patient is now having high-grade fevers (T-max 101.6?). Still no leukocytosis but CRP trending up. He continues to have bowel function. Some tenderness in the right lower quadrant on examination common and no peritonitis. A CT chest angio was obtained due to patient having newly developed tachycardia and hypoxia. No evidence of PE. He does have some bilateral lower lobe atelectasis. IS was encouraged. Recommend patient continue on IV Zosyn. Will continue to trend his fever curve.
--- NOTE | 2024-10-09 19:17 | PC.NURSE ---
Nursing Care Hours: [id number] Pt this shift calm and cooperative, alert and oriented. Pain rated 2/10. Afebrile this shift with highest at 99.8 orally. Oral Tylenol given for comfort. VSS. Pt independent in room, pt reports walking the [employer]onald. Ate ice cream for lunch and tolerated well. IV saline locked. Bowel sounds active.
[2024-10-09] MEDS: ENOXAPARIN 40 MG/0.4 ML INJ SUBCUT (22:01)
[2024-10-10] VITALS (7 sets, daily range): BP systolic 132–139; BP diastolic 85–94; PULSE 81–102; RESP 16–96; TEMP 36.8–36.9; O2SAT 95–96
[2024-10-10] MEDS: PIPERACILLIN/TAZOBACTAM 3.375 GM in 0.9 % SODIUM CHLORIDE Mini-bag 100 ML IVPB ×3 (02:48→14:45)
[2024-10-10] MEDS: ONDANSETRON 2 MG/ML inj IVP (03:42)
--- NOTE | 2024-10-10 06:18 | PC.NURSE ---
End of shift report [id number]: VSS. Denies pain. Afebrile.?Pt is ind in room. Pt stated he was feeling nauseous, Zofran given with relief. Pt stated he was feeling some heartburn around 0330, pt declined intervention at this time. Abdomen lap sites are C/D/I. Pt is resting in bed, call light within reach.?
[2024-10-10 06:21] LABS: Basophils Percent Auto 0.2 % (0.0-3.0); Eosinophils Percent Auto 1.3 % (0.0-7.0); Hematocrit 44.1 % (37.0-53.0); Hemoglobin* 15.1 gm/dL (13.5-17.5); Immature Granulocytes Pct Auto 0.3 %; Lymphocytes Percent Auto 7.8 % (20-44); Mean Corpuscular HGB Conc 34 gm/dL (32-36); Mean Corpuscular Hemoglobin 31 pg (26-34); Mean Corpuscular Volume 92 fL (80-100); Monocytes Percent Auto 9.7 % (0.0-11.0); Neutrophils Percent Auto 80.7 % (42.0-72.0); Platelet Count* 191 K/uL (140-440); RDW Coefficient of Variation % 12.4 % (11.5-15.5); Red Blood Count 4.81 m/uL (4.30-5.90); White Blood Count* 11.77 K/uL (4.50-11.00)
[2024-10-10 06:22] LABS: Slide Review Reflex No
[2024-10-10 07:06] LABS: C Reactive Protein* 34.5 mg/dL (0.5-1.0)
--- NOTE | 2024-10-10 12:50 | P.DS_ITS ---
DS: Providers Provider Date Seen: 10/10/24 Date of admission: 10/06/24 17:53 Primary care physician: Not a Local Provider Admitting Clinician: Lea Santiago MD Attending Physician on discharge: Lea Santiago MD DS: Summary Hospital Course Hospital Course: Patient presented to the emergency department with clinical workup consistent with appendicitis. He was taken to the operating room for a laparoscopic appendectomy with evidence of perforation. Postoperatively he continued on IV antibiotics. He did have intermittent fevers. No leukocytosis but an up trending CRP. He had return of bowel function. Patient lives in [place], he was here visiting family. He was very anxious to return home. Recommend he continue with 7 additional days of oral antibiotics, Cipro/Flagyl. Will have the patient follow-up over the phone in 2 weeks. He was instructed to go to urgent care or his local emergency department with any increasing abdominal pain, vomiting or worsening fevers. Time Spent with Patient Time attestation: Total time spent providing and/or coordinating discharge services: Exam Const: Vital Signs, click to edit/add: Vital Signs - 24 hr 10/09/24 14:22 10/09/24 15:00 10/09/24 15:00 Temperature 99.7 F H 98.6 F Pulse Rate [Right Pulse Oximeter] 97 97 Respiratory Rate 18 18 Blood Pressure [Le ft Arm] 131/83 Blood Pressure [Ri ght Arm] Pulse Oximetry 92 Oxygen Delivery Me thod Room Air 10/09/24 15:00 10/09/24 22:00 10/09/24 23:00 Temperature 100.2 F H 99.8 F H Pulse Rate [Right Pulse Oximeter] 92 Respiratory Rate 16 16 Blood Pressure [Le ft Arm] 143/82 H Blood Pressure [Ri ght Arm] Pulse Oximetry 97 92 Oxygen Delivery Me thod Room Air Room Air 10/09/24 23:00 10/09/24 23:00 10/10/24 03:00 Temperature 98.5 F Pulse Rate [Right Pulse Oximeter] 92 81 Respiratory Rate 16 16 16 Blood Pressure [Le ft Arm] 136/85 Blood Pressure [Ri ght Arm] Pulse Oximetry 92 95 Oxygen Delivery Me thod Room Air Room Air 10/10/24 08:00 10/10/24 09:37 10/10/24 09:40 Temperature 98.3 F Pulse Rate [Right Pulse Oximeter] 91 91 Respiratory Rate 96 H 16 16 Blood Pressure [Le ft Arm] Blood Pressure [Ri ght Arm] 132/88 Pulse Oximetry 96 96 Oxygen Delivery Me thod Room Air Room Air 10/10/24 11:32 Temperature 98.4 F Pulse Rate [Right Pulse Oximeter] 102 H Respiratory Rate 16 Blood Pressure [Le ft Arm] 139/94 H Blood Pressure [Ri ght Arm] Pulse Oximetry 96 Oxygen Delivery Me thod Room Air DS: Data Data Completed and Pending Labs on day of discharge: Labs from last 24 hours 10/10/24 06:07 WBC 11.77 H RBC 4.81 Hgb 15.1 Hct 44.1 MCV 92 MCH 31 MCHC 34 RDW Coeff of [place] 12.4 Plt Count 191 Neut % (Auto) 80.7 H Lymph % (Auto) 7.8 L [place] % (Auto) 9.7 Eos % (Auto) 1.3 Baso % (Auto) 0.2 Neut # (Auto) 9.50 H Lymph # (Auto) 0.90 [place] # (Auto) 1.10 H Eos # (Auto) 0.20 Baso # (Auto) 0.00 Abs Immat Gran (auto) 0.00 Imm/Tot Granulo (auto) 0.3 C-Reactive Protein 34.5 H Preliminary micro results at discharge 10/08/24 18:21 Blood Culture - Preliminary Blood NO GROWTH AFTER 24 HOURS 10/08/24 18:12 Blood Culture - Preliminary Blood NO GROWTH AFTER 24 HOURS Discharge Plan Discharge Disposition: Home, Self-Care Date of Admission: 10/06/24 17:53 Attending Provider on Discharge: Lea Santiago Primary Care Provider: Provider,Not a Local Condition: Stable Anticipated Discharge Date/Time: 10/10/24 12:43 Discharge Medications: New hydrocodone-acetaminophen 5-325 mg tablet 1 tab PO Q6H PRN (Reason: pain) Qty: 15 0RF ciprofloxacin HCl [Cipro] 500 mg tablet 500 mg PO BID 7 Days Qty: 14 0RF metronidazole 500 mg tablet 500 mg PO Q8H 7 Days Qty: 21 0RF Discharge Orders: Discharge Order (Routine); Ordered 10/10/24 Ordered By: Lea Santiago Patient Education: Ciprofloxacin (By mouth), Hydrocodone/Acetaminophen (By mouth), Metronidazole (By mouth), General Anesthesia (DC), Laparoscopic Appendectomy (DC), Post-Operative Instructions: Appendectomy Additional Instructions: You were prescribed a narcotic pain medication. In addition you may supplement with Tylenol and/or ibuprofen. Be sure to not exceed greater than 4 g of Tyleno l in a 24 hour period. You have Steri-Strips dressings in place, allow these to fall off on their own. Okay to shower starting tomorrow. Do not soak in a bath or swim for 2 weeks. Follow-up with Dr. Santiago for a phone follow-up in 2 weeks. Please call if you are experiencing severe pain, nausea, vomiting, difficulty urinating, fever or not had a bowel movement in 4 days after surgery. You can call [facility] at [phone] for any emergent or after our questions. Activity Level: No strenuous activity Activity Detail: Activity as tolerated. Avoid strenuous activity. No lifting greater than 20 lb for 2 weeks. Please take 2 weeks off from work. Okay to return 10/22/24 without restriction. Discharge Diet: Regular Follow Up Appointments: Provider,Not a Local [Primary Care Provider, Family Practice] [facility]: [facility] Inst[facility]
--- NOTE | 2024-10-10 16:28 | PC.NURSE ---
This patient remained A/Ox4 throughout their stay today as well as vitally stable. No fever. Blood pressure and pulse did reach slightly elevated status. They frequently walked around the unit and in their room independently and safely. Lap sites appeared normal. Only very old drainage. No tenderness of this region except when greatly pressed upon. IV antibiotic given. Patient discharged from our care with oral antibiotics and pain medication. Time of departure 15:30. Prescriptions sent to home pharmacy in [place]. Patient educated on wound care, signs and symptoms, and all other discharge instructions per our policy. It was emphasized that the patient is to take three breaks while on their way home to prevent blood clotting. It was also emphasized that they are to go into an ER if they experience the symptoms listed on their instructions. The number to this medical unit was given if the patient has questions or feels hesitant to utilize the ER and requires support.
== END 2024-10-10 15:30 | disposition home or self-care (01) | DRG 225 ==
LOC: ED 15:54 → OR 16:02 → MEDSURG 17:52 → OR 17:58 → MEDSURG 17:58
PROVIDERS: Admitting Provider Surgery; Emergency Provider Family Medicine; Visit Provider Surgery
PROC: 0DTJ4ZZ Resection of Appendix, Percutaneous Endoscopic Approach (ICD-10-PCS; CPT 44970; principal; 2024-10-06 16:00)
DX: K35.32 Acute appendicitis with perforation, localized peritonitis, and gangrene, without abscess (principal); J95.89 Other postprocedural complications and disorders of respiratory system, not elsewhere classified; J98.11 Atelectasis; J91.8 Pleural effusion in other conditions classified elsewhere
CPT/HCPCS: 00840; 36415; 71275; 74177; 80048; 80076; 81001; 83605; 85025; 86140; 87040; 88304; 93005; 94761; 99140; 99284; 99285; A9270; J0330; J0665; J1100; J1171; J1650; J1885; J2270; J2405; J2543; J2704; J3010; J3475; J3490; J7030; J7050; J7120; Q9967